=== PATIENT | male | born 1970 | race Caucasian/White ===

== ENCOUNTER 2023-02-07 14:19 | Inpatient (IN) | payer MEDICARE ==
[~2023-02-07] VITALS: Ht 177.8 cm; Wt 86.4 kg
[2023-02-07] MEDS ORDERED: LORazepam 2 mg/ml vial IM ONE (15:45)
[2023-02-07] MEDS ORDERED: haloperidol lactate 5mg/ml inj IM ONE (15:45)
--- NOTE | 2023-02-07 15:55 | NUR ---
Pt brought to EROF from main ER and placed in bed 23. Pt avoidant when given directions and [place] [facility]. Pt makes many references to "Star Trek" and "[place]". Pt eventually changed into green scrubs and belongings were inventoried and valuables inventoried and placed in safe by ER Admitting. Pt lying in bed and refused to answer questions and now appears to be sleeping. Pt reports seeing a psychiatrist in [facility]
[2023-02-07 17:09] LABS: BASOPHILS # (AUTO) 0.1 X10'3 (0-0.2); BASOPHILS % (AUTO) 0.8 % (0-1); EOSINOPHILS % (AUTO) 0.2 % (0-6); HEMATOCRIT 40.6 % (42.0-52.0); HEMOGLOBIN 13.9 g/dl (14.0-17.9); LYMPHOCYTES # (AUTO) 0.8 X10'3 (1.1-4.8); LYMPHOCYTES % (AUTO) 8.4 % (21-51); MEAN CORPUSCULAR HEMOGLOBIN 31.4 PG (27.0-31.0); MEAN CORPUSCULAR HGB CONC 34.4 g/dL (33.0-36.5); MEAN CORPUSCULAR VOLUME 91.4 FL (78-98); MEAN PLATELET VOLUME 7.2 FL (7.4-10.4); MONOCYTES # (AUTO) 0.7 X10'3 (0-0.9); MONOCYTES % (AUTO) 7.1 % (2-12); NEUTROPHILS % (AUTO) 83.5 % (42-75); PLATELET COUNT 316 X10'3 (140-440); RED BLOOD COUNT 4.44 X10'6 (4.70-6.10); RED CELL DISTRIBUTION WIDTH 13.2 % (11.5-14.5); WHITE BLOOD COUNT 9.6 X10'3 (4.5-11.0)
[2023-02-07 17:20] LABS: ALANINE AMINOTRANSFERASE 48 U/L (12-78); ALBUMIN 4.1 G/DL (3.4-5.0); ALBUMIN/GLOBULIN RATIO 1.1 (1.1-1.5); ALKALINE PHOSPHATASE 72 IU/L (46-116); ANION GAP 13 (8-16); ASPARTATE AMINO TRANSFERASE 29 U/L (10-37); BILIRUBIN,TOTAL 0.3 MG/DL (0.1-1.0); BLOOD UREA NITROGEN 7 MG/DL (7-18); BUN/CREATININE RATIO 7.1 (10.0-20.0); CALCIUM 9.3 MG/DL (8.5-10.1); CHLORIDE 103 MMOL/L (99-107); CREATININE 0.99 MG/DL (0.60-1.10); GLUCOSE 147 MG/DL (70-104); POTASSIUM 3.2 MMOL/L (3.5-5.1); SODIUM 140 MMOL/L (135-145); TOTAL CARBON DIOXIDE 23.8 MMOL/L (24-32); TOTAL PROTEIN 7.7 G/DL (6.4-8.2); eCRCL 88 ML/MIN; eGFR 80 ML/MIN
[2023-02-07 17:31] LABS: ETHANOL < 10 MG/DL (<10); THYROID STIMULATING HORMONE 0.68 ulU/ml (0.34-4.50)
--- NOTE | 2023-02-07 17:40 | NUR ---
Attempts made to obtain information from Pt but he is either sleeping or refusing to answer. Pt is in no distress at this time.
--- NOTE | 2023-02-07 19:10 | NUR ---
Attempted to engage with the patient who refused to respond except when I asked him if I could give him an IM injection that was ordered by the MD and the only response he gave was a thumbs up sign. He allowed to injection without incident. He is refusing to acknowledge anything else including eating his dinner tray. He is aware that we are here to help him.
--- NOTE | 2023-02-07 19:18 | NUR ---
The patient is laying flat on his bag. He has a soft neck collar but is not responding when asked why he had that on. He is wearing sunclasses and a baseball cap. He is not making verbal replies.
--- NOTE | 2023-02-07 20:15 | NUR ---
The patient is now awake and verbally responding to questions. He stated he was not sure why he was here but accepted that he was here on a psychiatric hold when he was told that. He gave a urine sample.
[2023-02-07 20:29] LABS: BILIRUBIN,URINE NEGATIVE (Neg); CLARITY,URINE CLEAR (Clear); COLOR,URINE YELLOW (Yellow); GLUCOSE, URINE NEGATIVE (Neg); KETONES,URINE NEGATIVE (Neg); LEUKOCYTE ESTERASE ,URINE NEGATIVE (Neg); NITRITES, URINE NEGATIVE (Neg); OCCULT BLOOD,URINE NEGATIVE (Neg); PH,URINE 7.5 (4.8-8.0); PROTEIN,URINE NEGATIVE (Neg); UROBILINOGEN,URINE 0.2 E.U/dL (0.2-1.0)
[2023-02-07 20:33] LABS: UA COLLECTION TYPE CLN CATCH MIDSTREAM
[2023-02-07 20:43] LABS: URINE AMPHETAMINE SCREEN NEGATIVE (Neg); URINE BARBITUATE SCREEN NEGATIVE (Neg); URINE BENZODIAZEPINES SCREEN NEGATIVE (Neg); URINE CANNABINOID SCREEN NEGATIVE (Neg); URINE COCAINE SCREEN NEGATIVE (Neg); URINE METHADONE SCREEN NEGATIVE (Neg); URINE OPIATE SCREEN NEGATIVE (Neg); URINE PHENCYCLIDINE SCREEN NEGATIVE (Neg)
--- NOTE | 2023-02-07 20:48 | NUR ---
The patient up and mildly intrussive with others.
--- NOTE | 2023-02-07 20:53 | NUR ---
PACKET SENT TO [facility]
--- NOTE | 2023-02-07 23:09 | NUR ---
The patient appears to be sleeping
--- NOTE | 2023-02-08 00:56 | NUR ---
The patient appears to be sleeping
--- NOTE | 2023-02-08 03:07 | NUR ---
The patient appears to be sleeping
--- NOTE | 2023-02-08 05:02 | NUR ---
The patient appears to be sleeping
[2023-02-08] MEDS: olanzapine 10mg tablet PO SCH ×2 (07:13→20:34)
--- NOTE | 2023-02-08 07:27 | NUR ---
RECEIVED REPORT. PT ALERT AND HYPER ACTIVE. PT WALKING AROUND ROOM WITH FREQUENT VISITS TO THE NURSES STATION REPEATEDLY ASKING QUESTIONS. PT GOES OFF ON TANGENTS AND WILL FOCUS ON 1 WORD IN A COMMENT AND CHANGE CONVERSATION TO SOMETHING ABOUT THAT WORD.. PT SITTING IN CHAIR POSITION OF COMFORT.
--- NOTE | 2023-02-08 08:00 | NUR ---
mother called to speak with pt, upon tech asking pt if he wanted to talk to his mother on the phone pt ignored tech, RN repeated tech's question and pt ignored RN as well. Mother asked tech how much pt slept, tech informed mother pt slept in the time [id number]. tech informed mother that she is welcome to call back in a couple of hours as the pt did state he wanted to call his mom this morning.
--- NOTE | 2023-02-08 09:25 | NUR ---
OT'S MOTHER CALLED, [place]Y [place]OCK [phone]. PT DID NOTWANT TO SPEAK TO HER AT THE MOMENT. PT REQUESTED TV TO WATCH AND IT WAS PROVIDED.
--- NOTE | 2023-02-08 10:04 | NUR ---
pt uncle Ed called to speak with him, RN asked pt if they wanted to talk to him, pt ignored RN, tech then repeated the question and pt ignored tech. tech informed Ed that he is welcome to call again later to try again.
--- NOTE | 2023-02-08 14:52 | NUR ---
PT ACCEPTED TO [facility], DR LARA @[phone]
[2023-02-08 18:16] VITALS: BP 130/93; PULSE 108; RESP 16; TEMP 98.1; O2SAT 98
[2023-02-08] MEDS ORDERED: magnesium hydroxide 30ml (MOM) UD suspension PO PRN (18:25)
[2023-02-08] MEDS ORDERED: mag hydrox/Alum hydrox/simeth 30ml oral suspension PO PRN (18:25)
[2023-02-08] MEDS ORDERED: loperamide 2mg capsule PO PRN (18:25)
[2023-02-08] MEDS ORDERED: ATOM80CA3 PO (18:31)
[2023-02-08] MEDS ORDERED: PALI156D IM (18:31)
[2023-02-08] MEDS ORDERED: IPRA4AER INH (18:31)
[2023-02-08] MEDS ORDERED: TRAZ-251 PO (18:31)
[2023-02-08] MEDS ORDERED: PROP10TA10 PO (18:31)
[2023-02-08] MEDS ORDERED: ESCI-8 PO (18:31)
--- NOTE | 2023-02-08 18:34 | NUR ---
ADMIT NOTE: Pt. brought up from ER overflow on 5150 at 1743. 5150 states, Jose is unable to develop viable plan to meet his basic needs. Pt. was resistive during skin check but eventually let staff assess pt.'s skin. Pt. initially refused to shower but then agreed. RN unable to complete rest of admit due to change of shift. MRSA swab sent to lab.
[2023-02-08 19:30] VITALS: BP 150/91; PULSE 112; RESP 16; TEMP 99; O2SAT 97
[2023-02-08] MEDS ORDERED: traZODone 50mg tablet PO ONE (23:17)
[2023-02-08] MEDS ORDERED: propranolol 10mg tablet PO ONE (23:20)
[2023-02-08] MEDS ORDERED: traZODone 50mg tablet PO PRN (23:29)
[2023-02-08] MEDS: acetaminophen 325mg tablet PO PRN (23:46)
--- NOTE | 2023-02-09 04:04 | NUR ---
Nursing Progress Note: Problem: Pt. brought up from ER overflow on 5150 at 1743. 5150 states, Jose is unable to develop viable plan to meet his basic needs. Pt. was resistive during skin check but eventually let staff assess pt.'s skin. Pt. initially refused to shower but then agreed. RN unable to complete rest of admit due to change of shift. MRSA swab sent to lab. Interventions: : Maintained a safe and structured environment, ensured contract for safety, administered meds as prescribed, provided clear and simple instructions, and maintained Q 15min safety checks. Response: Pt was taking a shower at the beginning of shift. On assessment pt denies AVH/SI/HI but states he is not voiding or moving his bowels. Pt is severely attention seeking and bladder was assessed for distention but no distention noted. When asked how the pts day was he stated, not so good, I used toilet paper, butt wipes, I used cups, aluminum. Pt trailed off with other items he had used that during the day. Pt had to be coaxed to take his meds, he asked how long do I have to take this? Can I take it later? and asked for the doctors desk number. Pt is intrusive and follows staff around the unit walking in close step behind them matching their pace. Pts heart rate was 112 on assessment and a one-time Propranolol dose was ordered. Pt also received PRN Tylenol and Trazadone. Pt complained about Tylenol not looking like it was extended release. Pt walked around the unit periodically throughout the night talking to staff and requesting things such as a breathing treatment from RT stating he couldnt breathe well. 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 Pt resistive to listening to direction to go back to room and lay down. Plan: Cont. to provide a safe and structured environment for further stabilization. Addendum: 02/09/23 at 0536 by Rhianna Villaseñor RN Pt states he is prescribed Propranolol for his heart rate but has not been taking it. Pts potassium was 3.2 on admission. Pt requested to be tested for Hep B and Hep C.
[2023-02-09 07:00] VITALS: RESP 16; O2SAT 97
[2023-02-09] MEDS: olanzapine 10mg tablet PO SCH ×2 (07:13→20:10)
[2023-02-09 08:00] VITALS: BP 96/71; PULSE 113; RESP 16; TEMP 98.5; O2SAT 97
[2023-02-09 09:49] LABS: HEMOGLOBIN A1C 5.8 % (4.5-6.2)
[2023-02-09 10:15] LABS: CHOL/HDL RATIO 3.2 (0.00-4.99); CHOLESTEROL 152 MG/DL (0-200); HDL CHOLESTEROL 48 MG/DL (35-60); LDL CHOLESTEROL 91 MG/DL (50-100); TRIGLYCERIDES 75 MG/DL (20-135)
[2023-02-09 10:22] VITALS: BP 120/80; PULSE 100
[2023-02-09] MEDS ORDERED: atomoxetine 40 MG capsule PO SCH (10:25)
[2023-02-09] MEDS: propranolol 10mg tablet PO SCH ×2 (10:39→20:10)
[2023-02-09] MEDS: ESCITALOPRAM 10 mg tablet 10 MG TABLET PO SCH (10:39)
[2023-02-09] MEDS ORDERED: atomoxetine 40 MG capsule PO ONE (10:40)
--- NOTE | 2023-02-09 16:33 | NUR ---
Nursing Progress Note: Problem : Pt. brought up from ER overflow on 515 at 1743. 5150 states, Jose is unable to develop viable plan to meet his basic needs. Pt. was resistive during skin check but eventually let staff assess pt.'s skin. Pt. initially refused to shower but then agreed. Interventions : Introduced self and established rapport, maintained a safe and supportive environment, ensured contract for safety, provided clear and simple instructions, provided active listening and positive encouragement, provided redirection and maintained boundaries, completed medication reconciliation, and maintained Q 15min safety checks. Response : Received pt. awake pacing the unit at the beginning of the shift, he continued to pace frequently throughout the shift approaching different staff members and making multiple random requests. Pt. requires clear boundaries and redirection with some effectiveness. He appears to fixate on various staff members and will follow them staring intently and is intrusive. Pt's medication reconciliation was completed and pt. was compliant with taking his ordered medications with some hesitation and presents as paranoid. He examined each medication and requested to open the wrappers himself. Pt. then stated, "Can I have the doctor's manual to compare the medications to the pictures?" Pt. 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 He complained of generalized body pain, and this junior copywriter offered PRN Tylenol, however pt. refused stating he only takes eight hour extended release Tylenol. 1:1 was completed later at bedside, pt. continues to present as restless and intrusive. He denies any S/I, H/I, or A/V/SHARPE. Pt. does state, "I'm sad," and upon further questioning by this junior copywriter become tearful and reported that his father in 2020. When questioned if he was close to his father, pt. stated, "No, he called me an idiot." Pt. admits that he is close to his mother and lives with her sometimes. He then continues on in a somewhat disorganized manner to state, "What I really need is a phone book with the yellow pages." Pt. then talks about how he uses the telephone book at [facility] to call random numbers just so he can have someone to talk to. Pt. does appear to prefer constant interaction with others and is attention seeking. Prior to dinner, pt. c/o a headache and did accept PRN Tylenol, will continue to monitor closely. Plan : Pt. requires interruption of current crisis, medication adjustments, and a safe and supportive environment. Addendum: 02/09/23 at 1752 by Unique Billings RN Pt. presents as very disheveled and is bizarrely dressed. He was noted to be wearing a soft neck collar for no apparent reason, sunglasses, and a random sticker in the middle of his forehead throughout the shift.
--- NOTE | 2023-02-09 17:01 | NUR ---
Pt's potassium level was previously decreased in the ER, this was endorsed to Dr. Smith and received orders for a repeat potassium level to be drawn.
[2023-02-09] MEDS: acetaminophen 325mg tablet PO PRN (17:09)
[2023-02-09 19:38] VITALS: BP 130/87; PULSE 93; RESP 16; TEMP 98.2; O2SAT 97
[2023-02-09] MEDS: traZODone 50mg tablet PO PRN (20:10)
[2023-02-09 21:38] VITALS: PULSE 76; RESP 18; O2SAT 95
[2023-02-09] MEDS: ipratropium/albuterol 3ml nebule NEB PRN (21:38)
[2023-02-09 21:46] VITALS: PULSE 78; RESP 16
[2023-02-09] MEDS ORDERED: traZODone 50mg tablet PO ONE (22:35)
--- NOTE | 2023-02-10 03:50 | NUR ---
Nursing Progress Note: Problem : Pt. brought up from ER overflow on 5150 at 1743. 5150 states, Jose is unable to develop viable plan to meet his basic needs. Pt. was resistive during skin check but eventually let staff assess pt.'s skin. Pt. initially refused to shower but then agreed. Interventions : Introduced self and established rapport, maintained a safe and supportive environment, ensured contract for safety, provided clear and simple instructions, provided active listening and positive encouragement, provided redirection and maintained boundaries, completed medication reconciliation, and maintained Q 15min safety checks. Response : Patient is intrusive and appears to be attention seeking at times. He required redirection from congregating in front of female peer's door and following staff members movements several times this shift. Patient denied SI, HI, A/VH; no apparent delusions expressed. Patient makes frequent requests to meet needs and does not appear satisfied with what is provided, making an argument to why he changed his mind. Patient was compliant with HS medication; PRN Trazodone provided; he appeared to have difficulty getting to sleep and Areli RIVAS notified. Patient provided one time order for Trazodone 100mg PO. Patient continues to get out of bed frequently and requires redirection. Plan : Pt. requires interruption of current crisis, medication adjustments, and a safe and supportive environment.
[2023-02-10] MEDS: propranolol 10mg tablet PO SCH ×2 (07:24→20:30)
[2023-02-10] MEDS: ESCITALOPRAM 10 mg tablet 10 MG TABLET PO SCH (07:24)
[2023-02-10] MEDS: olanzapine 10mg tablet PO SCH ×2 (07:24→20:30)
[2023-02-10] MEDS: atomoxetine 40 MG capsule PO SCH (07:24)
[2023-02-10 08:00] VITALS: BP 119/80; PULSE 72; RESP 12; TEMP 98.3; O2SAT 96
--- NOTE | 2023-02-10 13:50 | NUR ---
Nursing Progress Note: Problem: Pt. brought up from ER overflow on 5150 at 1743. 5150 states, Jose is unable to develop viable plan to meet his basic needs. Pt. was resistive during skin check but eventually let staff assess pt.'s skin. Pt. initially refused to shower but then agreed. Interventions: Provided 1:1 assessment with therapeutic communication and active listening; medication administration/education/monitoring; encouraged pt to participate in peer activities; provided clear boundaries and simple instructions, provided redirection and maintained boundaries, PRN Tylenol, monitored Q 15min safety checks. Response: Pt up pacing the halls at the start of the shift wearing a baseball cap, dark eye glasses and a [employer] banana insulation blower his forehead between his eyes. His pockets are stuffed full. He stands at the nurses station and stares into the glass at nurses working in the room. Pt goes from staff member to staff member making request throughout the shift such as, "two pairs of underwear per shift, hot water, med changes, tofu, phones, headphones, pens, water, and extra snacks." Pt given PRN Tylenol for reported SHARPE with good effect. Plan : Pt. requires interruption of current crisis, medication adjustments, and a safe and supportive environment.
[2023-02-10] MEDS: acetaminophen 325mg tablet PO PRN ×2 (14:28→20:30)
[2023-02-10 19:00] VITALS: BP 128/97; PULSE 72; RESP 18; TEMP 98.5; O2SAT 94
[2023-02-10] MEDS: traZODone 50mg tablet PO PRN (20:30)
[2023-02-10 23:55] VITALS: PULSE 70; RESP 18; O2SAT 96
--- NOTE | 2023-02-11 00:22 | NUR ---
Nursing Progress Note: Problem: The patient was admitted from the ER on a 5150 hold. Jose is unable to develop viable plan to meet his basic needs. Pt. was resistive during skin check but eventually let staff assess pt.'s skin. Pt. initially refused to shower but then agreed. Interventions: Provided 1:1 assessment with therapeutic communication and active listening; medication administration/education/monitoring; encouraged pt to participate in peer activities; provided clear boundaries and simple instructions, provided redirection and maintained boundaries, PRN Tylenol, monitored Q 15min safety checks. Response: The patient has been up on the unit. He appearance is bizarre with a sticker in the middle of his forehead and wearing two pairs of sunglasses. He is hoarding items in his room and he has his pockets stuffed with various papers. He wants nicotine replacement for anxiety. His discharge plan continues to be [place] "[place] my bucket [place]" He stated that he feels he needs to be here until he is able to sleep better. He is intrusive with staff and peers but is accepting redirection. He is medication compliant. Plan: Continue plan of care.
[2023-02-11 07:00] VITALS: RESP 18; O2SAT 96
[2023-02-11] MEDS: olanzapine 10mg tablet PO SCH ×2 (07:41→20:28)
[2023-02-11] MEDS: propranolol 10mg tablet PO SCH ×2 (07:41→20:28)
[2023-02-11] MEDS: ESCITALOPRAM 10 mg tablet 10 MG TABLET PO SCH (07:41)
[2023-02-11] MEDS: atomoxetine 40 MG capsule PO SCH (07:41)
[2023-02-11] MEDS: ipratropium/albuterol 3ml nebule NEB PRN (07:58)
[2023-02-11 07:59] VITALS: PULSE 104; RESP 18; O2SAT 99
[2023-02-11 08:00] VITALS: BP 129/88; PULSE 83; RESP 18; TEMP 98.3; O2SAT 96
[2023-02-11 08:03] VITALS: PULSE 102; RESP 16
[2023-02-11] MEDS: acetaminophen 325mg tablet PO PRN (09:56)
--- NOTE | 2023-02-11 16:58 | NUR ---
Nursing Progress Note: Jose Problem: The patient was admitted from the ER on a 5150 hold. Jose is unable to develop viable plan to meet his basic needs. Pt. was resistive during skin check but eventually let staff assess pt.'s skin. Pt. initially refused to shower but then agreed. Interventions: Maintained a safe and supportive environment, ensured contract for safety, provided clear and simple instructions, provided active listening and positive encouragement, encouraged participation on the unit and maintained Q 15 min safety checks. Response: The pt. was up for vitals and breakfast. Cont. to wear multiple layers of clothing with papers stuffed in pockets and scrub pants turned backwards, wearing 2 pairs of sun glasses. Cont. to alirio objects in his room. Disorganized and unrealistic. Cont. to state his DC plan is to go to the [place]. When asked about how he will provide for his daily needs he goes on a tangent about other things such as, I eat fish for breakfast I need a peskatarian diet too, its easier than vegan. and How do you maintain when you are dizzy? He is intrusive, has poor boundaries as he will walk up and get very close to staff/peers, having to be told to give others personal space. He constantly asks for things stating, Well my mom does it for me or My mom gives that to me at home. If he doesnt like an answer he gets from one staff he goes to the next staff member. He is med compliant, had no noted/reported bx issues. -Appearance: dressed in layers of clothing, clean brushed thomas hair and estevez -Eye contact: good -Mood: calm -Affect: flat -Speech: mumbled at times, soft -Thought Process: impaired/tangential -A/V/H: denies -SI/HI: denies -ADLs: independent with little prompting -Insight: poor-none -Judgement: poor Plan: Pt. cont. to need a structured and safe environment for further stabilization. He cannot formulate a safe realistic discharge plan and he cannot state how he will provide for his daily needs. If discharged at this time he could be a high risk for safety and re-hospitalization.
[2023-02-11 19:28] VITALS: RESP 16; O2SAT 96
[2023-02-11 19:31] VITALS: BP 134/86; PULSE 82; RESP 18; TEMP 97.6; O2SAT 98
[2023-02-11] MEDS: traZODone 50mg tablet PO PRN (20:28)
--- NOTE | 2023-02-11 20:29 | NUR ---
Mobile Phlebotomist placed a call to provider on behalf of Bea Styles to request medication intervention for inability to sleep. Provider Librado ordered Trazodone 100mg PO PRN and may repeat x 1 if ineffective in 1 hour for insomnia. Order read back.
[2023-02-11] MEDS ORDERED: traZODone 50mg tablet PO PRN (20:30)
--- NOTE | 2023-02-12 00:08 | NUR ---
Nursing Progress Note: Problem: The patient was admitted from the ER on a 5150 hold. Jose is unable to develop viable plan to meet his basic needs. Pt. was resistive during skin check but eventually let staff assess pt.'s skin. Pt. initially refused to shower but then agreed. Interventions: Provided 1:1 assessment with therapeutic communication and active listening; medication administration/education/monitoring; encouraged pt to participate in peer activities; provided clear boundaries and simple instructions, provided redirection and maintained boundaries, PRN Tylenol, monitored Q 15min safety checks. Response: The patient has been up on the unit. He is intrusive with staff and peers but is accepting redirection. He is hoarding items in his room and had 6 water pitchers. He continues to keep a sticker stuck to his forehead. He stated that he is anticipating discharge in two days. He stated that he has money to get his car out of impound and money for food. He reports that he plans to live in his car. He denies psychotic symptoms. He denies depression. He did state that he is experiencing some dry mouth as a side effects to his medications. He believes that he is on the wrong med regime and has many odd ideas regarding substances. He stated that he is unable to stay with his mom after discharge, "She's had enough of me" He had difficulty falling asleep and was given trazodone 100mg. Plan: Continue plan of care
[2023-02-12 07:00] VITALS: RESP 14; O2SAT 97
[2023-02-12] MEDS: ESCITALOPRAM 10 mg tablet 10 MG TABLET PO SCH (07:02)
[2023-02-12] MEDS: atomoxetine 40 MG capsule PO SCH (07:02)
[2023-02-12] MEDS: propranolol 10mg tablet PO SCH (07:02)
[2023-02-12] MEDS: olanzapine 10mg tablet PO SCH (07:02)
[2023-02-12 08:00] VITALS: BP 136/83; PULSE 89; RESP 14; TEMP 98.3; O2SAT 97
[2023-02-12] MEDS ORDERED: paliperidone palmitate inj 234 MG/1.5 ML SYRINGE IM ONE (12:25)
[2023-02-12] MEDS ORDERED: OLAN10TA73 PO (12:28)
[2023-02-12] MEDS ORDERED: IPRA4AER INH (12:28)
[2023-02-12] MEDS ORDERED: TRAZ-251 PO (12:28)
[2023-02-12] MEDS ORDERED: ESCI-8 PO (12:28)
[2023-02-12] MEDS ORDERED: ATOM80CA3 PO (12:28)
[2023-02-12] MEDS ORDERED: PROP10TA10 PO (12:28)
--- NOTE | 2023-02-12 14:23 | NUR ---
Discharge note: Problem: The patient was admitted from the ER on a 5150 hold. oJse is unable to develop viable plan to meet his basic needs. Pt. was resistive during skin check but eventually let staff assess pt.'s skin. Pt. initially refused to shower but then agreed. Interventions: Maintained a safe and supportive environment, ensured contract for safety, provided clear and simple instructions, provided active listening and positive encouragement, encouraged participation on the unit and maintained Q 15 min safety checks. Response: The pt. was up for vitals and breakfast. Cont. to wear multiple layers of clothing with papers stuffed in pockets. He is unchanged in behaviors. Med compliant, friendly but very intrusive with poor boundaries. -Appearance: dressed in layers of clothing, clean brushed thomas hair and estevez -Eye contact: good -Mood: calm -Affect: flat -Speech: mumbled at times, soft -Thought Process: impaired/tangential -A/V/H: denies -SI/HI: denies -ADLs: independent with little prompting -Insight: poor-none -Judgement: poor Plan: Pt. discharged home with mom. I went over discharge instructions and meds, pt. verbalized understanding and signed all papers, inventoried and signed for belongings with tech. Discharged home and picked up at 1350 by his mom.
[2023-03-05] MEDS ORDERED: paliperidone palmitate 156 mg/ml inj.**IM only IM SCH (10:00)
== END 2023-02-12 13:50 | disposition home or self-care (01) | DRG 885 ==
LOC: ER 14:20 → ED HOLD 02-08 15:30 → ADULT MH 02-08 17:45
PROVIDERS: ADMIT Psychiatry & Neurology Psychiatry; ATTEND Psychiatry & Neurology Psychiatry
DX: F25.9 Schizoaffective disorder, unspecified (principal); F06.4 Anxiety disorder due to known physiological condition; M17.12 Unilateral primary osteoarthritis, left knee; M47.812 Spondylosis without myelopathy or radiculopathy, cervical region; G89.4 Chronic pain syndrome; G47.00 Insomnia, unspecified; Z20.822 Contact with and (suspected) exposure to COVID-19; F32.A Depression, unspecified; Z87.440 Personal history of urinary (tract) infections
CPT/HCPCS: 36415; 80053; 80061; 80305; 80320; 81003; 83036; 84132; 84443; 85025; 87081; 87811; 94640; 94760; 99285; J1630; J2060; J2426